=== PATIENT | male | born 1955 | race Caucasian/White ===

== ENCOUNTER 2020-11-23 09:53 | Outpatient (CLI) | payer MEDICARE, SELFPAY ==
--- NOTE | ~2020-11-23 | CT_ITS ---
EXAMINATION:CT lung screening DATE: 11/23/2020 10:50 INDICATION: Personal history of tobacco dependence. Smoker who quit in April 2020 with 60 pack year history. TECHNIQUE: Computed tomography (CT) of the chest was performed without intravenous contrast. Automate d exposure control and iterative reconstruction technique were employed. The dose-length product (DLP ) was 196.22 mGy-cm. COMPARISON: CT abdomen and pelvis 06/15/2016 FINDINGS: There is moderate emphysema. A calcified left lung nodule and calcified left hilar lymph no kam are consistent with old granulomatous disease. There are a few scattered pulmonary nodules measur ing up to 4 mm in left upper lobe. There is a 1.4 cm part-solid nodule in right upper lobe with 5 mm solid component. No pleural effusion. The heart size is normal. There are coronary artery calcificati ons. No pericardial effusion. There are changes of cholecystectomy. There is a 6 mm cyst in the liver . There is mild thoracic spondylosis. IMPRESSION: 1. Lung-RADS category 3: Probably benign. Further evaluation is recommended with noncontrast low-dose chest CT in 6 months. Reviewed, dictated and finalized at location A. [facility] [employer] IMPRESSION: 1. Lung-RADS category 3: Probably benign. Further evaluation is recommended wit h noncontrast low-dose chest CT in 6 months.
== END 2020-11-23 09:54 | disposition home or self-care (01) ==
PROVIDERS: PCP Family Medicine; Visit Provider Family Medicine
DX: Z12.2 Encounter for screening for malignant neoplasm of respiratory organs (principal); Z87.891 Personal history of nicotine dependence; R91.8 Other nonspecific abnormal finding of lung field
CPT/HCPCS: 71271